=== PATIENT | female | born 1980 | race Two or more races ===

== ENCOUNTER 2024-11-04 08:19 | Emergency (ER) | payer BC ==
[~2024-11-04] VITALS: Ht 165.1 cm; Wt 54.4 kg
[2024-11-04 08:29] VITALS: BP 164/97; TEMP 97.8; O2SAT 95
[2024-11-04] MEDS ORDERED: predniSONE 20 MG TABLET ONE (08:41)
[2024-11-04] MEDS ORDERED: FAMOTIDINE (20 MG) 20 MG TABLET ONE (08:42)
[2024-11-04] MEDS ORDERED: diphenhydrAMINE HCL 25 MG CAPSULE ONE (08:42)
[2024-11-04] MEDS: predniSONE 10 MG TABLET PO ONE (08:45)
[2024-11-04] MEDS: diphenhydrAMINE HCL 25 MG CAPSULE PO ONE (08:45)
[2024-11-04] MEDS: FAMOTIDINE (20 MG) 20 MG TABLET PO ONE (08:45)
[2024-11-04] MEDS ORDERED: HYDR-500 PO (08:46)
[2024-11-04] MEDS ORDERED: PRED20TA PO (08:46)
[2024-11-04] MEDS ORDERED: ERYT3.5O9 EACHEYE (08:46)
== END 2024-11-04 09:10 | disposition home or self-care (01) ==
LOC: ER 08:39
DX: T78.40XA Allergy, unspecified, initial encounter (principal); H10.213 Acute toxic conjunctivitis, bilateral; L30.9 Dermatitis, unspecified; F41.9 Anxiety disorder, unspecified; X58.XXXA Exposure to other specified factors, initial encounter
CPT/HCPCS: 99284; Q0163; J7512 ×2